=== PATIENT | male | born 1935 | race Caucasian/White ===

== ENCOUNTER 2023-03-26 14:10 | Outpatient (AMB) | payer MEDICARE, SELFPAY ==
--- NOTE | 2023-03-26 14:30 | AM.OFFWIN_ITS ---
Intake Vital Signs 03/26/23 14:32 Height 5 ft 7.5 in Weight 195 lb 6 oz BMI 30.1 BP 112/62 Blood Pressure Location Lt brachial Position Sitting Pulse 76 Pulse Source Pulse Oximeter Pulse Oximetry (%) 97 Oxygen Delivery Method Room Air Intake Visit Reasons: EST/rumble in throat Intake Note: pt is here for exposure to covid and would like to be swabbed Patient Tobacco Use Status: Former Tobacco user Allergies No Known Allergies Allergy (Verified 03/26/23 14:34) Do you need a note to return to daycare/school/sports/work: No HPI HPI Comments History of Present Illness Details This is an 87-year-old male who presents to the office today for a COVID test. Patient states he had a COVID exposure. His is currently in a senior living and he was visiting her last night. She then tested positive for COVID-19. Patient is completely asymptomatic without fever/chills, myalgias/arthralgias, cough, congestion/rhinorrhea, sore throat, nasal congestion, or changes in smell/taste. [facility] Social History Patient Tobacco Use Status: Former Tobacco user Review of Systems Const All systems reviewed & are unremarkable except as noted in HPI and below Reports no additional complaints Eyes Reports no additional complaints ENT Reports no additional complaints Card Reports no additional complaints Resp Reports no additional complaints GI Reports no additional complaints Reports no additional complaints Musc Reports no additional complaints Skin/Breast Reports system reviewed and no additional complaints, except as documented Neuro Reports no additional complaints Psych Reports no additional complaints Endo Reports no additional complaints Edy/Lymph Reports no additional complaints Aller/Immun Reports no additional complaints Physical Exam Vital Signs: Last Vital Signs Pulse 76 03/26/23 14:32 BP 112/62 03/26/23 14:32 Pulse Ox 97 03/26/23 14:32 Oxygen Delivery Method Room Air 03/26/23 14:32 BMI result Body Mass Index 30.1 Const General: cooperative, healthy appearing, no acute distress and well developed Orientation/consciousness: patient oriented x3 HEENT Head: Yes normal to inspection Ears: hearing grossly normal bilaterally General nose exam: Normal external nose present Face and sinus: Yes normal facial exam Mouth: Normal oral and palatal mucosa present Eyes General: appearance normal, both eyes and all related structures Pupils: Equal, round and reactive pupils present EOM: EOMs intact bilaterally Resp Effort & Inspection: normal respiratory effort and no respiratory distress Auscultation: clear to auscultation bilaterally Cardio Rate: regular rate Rhythm: regular rhythm Heart sounds: no gallops, no murmurs and no rubs Peripheral pulses: Peripheral pulses 2+ throughout GI Inspection: No distended Palpation (GI): Soft to palpation and nontender Auscultation: normal bowel sounds Skin General skin exam: no rashes or lesions noted Neuro General: patient oriented x3 Cranial nerves: Yes CN's II-XII intact bilaterally and Yes Equal, round and reactive pupils present Gait exam (Neuro): Normal gait present Motor exam (neuro): 5/5 motor strength present throughout Extrem General: Yes normal to inspection, Yes full ROM and Yes no clubbing, cyanosis or edema Psych Appearance: grossly normal Mental Status: mental status grossly normal Assessment & Plan Assessment & Plan (1) Exposure to COVID-19 virus: Code(s): Z20.822 - Contact with and (suspected) exposure to COVID-19 Plan: 87-year-old male presenting to the office following exposure to COVID-19. Patient requesting COVID-19 test. Patient is asymptomatic. His vital signs are stable and his physical exam is benign. COVID test obtained and sent to the lab. Will call patient with results. Patient advised to follow-up here or go to the emergency room for any new symptoms. Patient verbalizes understanding and he is in agreement with the plan. Orders: Orders SARS-CoV2/FLU/RSV Today Z20.822 - Contact with and (suspected) exposure to COVID-19 Coding Level of Care Code Est Pt Level 3 (26938) Diagnoses Exposure to COVID-19 virus Z20.822
[2023-03-26 14:32] VITALS: BP 112/62; PULSE 76; O2SAT 97; BMI 30.1
== END 2023-03-26 15:16 | disposition home or self-care (01) ==
PROVIDERS: PCP Internal Medicine; Visit Provider Physician Assistant Medical
DX: Z20.822 Contact with and (suspected) exposure to COVID-19 (principal)
CPT/HCPCS: 99213

== ENCOUNTER 2023-03-26 15:19 | Outpatient (REF) | payer MEDICARE, SELFPAY ==
[2023-03-26 20:38] LABS: Influenza A PCR NEGATIVE (Negative); Influenza B PCR NEGATIVE (Negative); Resp Syncy Virus RNA Qual PCR NEGATIVE (Negative); SARS COV2 PCR INHOUSE NEGATIVE (Negative)
== END 2023-03-26 15:20 | disposition home or self-care (01) ==
LOC: HO.LAB 15:19
PROVIDERS: Visit Provider Physician Assistant Medical
DX: Z20.822 Contact with and (suspected) exposure to COVID-19 (principal)
CPT/HCPCS: 0241U